=== PATIENT | male | born 1980 | race Two or more races ===

== ENCOUNTER 2021-08-10 19:14 | Emergency (ER) | payer OTHER ==
[~2021-08-10] VITALS: Ht 175.3 cm; Wt 105.2 kg
[2021-08-10] MEDS ORDERED: BACITRACIN ZINC TOPICAL OINT PACKET. TP ONE (19:45)
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
[2021-08-10 20:20] VITALS: BP 150/82
== END 2021-08-10 20:25 | disposition home or self-care (01) ==
LOC: EEVIPCON 19:14 → ER 19:14
DX: S01.01XA Laceration without foreign body of scalp, initial encounter (principal); S01.81XA Laceration without foreign body of other part of head, initial encounter; Y08.89XA Assault by other specified means, initial encounter; Y93.89 Activity, other specified; Y92.89 Other specified places as the place of occurrence of the external cause; Y99.8 Other external cause status
CPT/HCPCS: 12002; 99282; 99283